=== PATIENT | male | born 2000 | race Caucasian/White ===

== ENCOUNTER 2023-06-14 21:42 | Emergency (ER) | payer OTHER, SELFPAY ==
[2023-06-14] VITALS (9 sets, daily range): BP systolic 121; BP diastolic 77; PULSE 49–90; RESP 8–19; TEMP 36.5; O2SAT 56; BMI 27.6
--- NOTE | 2023-06-14 22:55 | ECG_ITS ---
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
--- NOTE | 2023-06-14 22:55 | XR_ITS ---
The [address] [address] Patient Name: OSCAR MARTIN MRN: [id number] date: 2000 Sex: M Assigned Patient Location: ER Current Patient Location: ER Accession/Order Number: [id number] Exam Date: 06/14/2023 23:25 Report Date: 06/14/2023 23:41 At the request of: GALLO PENALOZA Procedure: XR chest 1V EXAM: XR chest 1V HISTORY: Chest pain, increased with deep breath, with palpitations for 2 days. COMPARISON: Chest x-ray, 10/07/2021. TECHNIQUE: AP upright portable chest radiograph. FINDINGS: The heart, mediastinum, lungs and pleural spaces appear within normal limits. The bony thorax is intact and unremarkable. XR/XR chest 1V IMPRESSION: Negative portable chest radiograph. Electronically authenticated by: YORDAN GARCIA Date: 06/14/2023 23:41
[2023-06-14 23:23] LABS: Basophils Percent Auto 0.4 % (0.2-2.0); Eosinophils Absolute Auto 0.3 10^3/uL (0.0-0.7); Eosinophils Percent Auto 3.8 % (0.9-7.0); Hematocrit 42.3 % (42.0-54.0); Hemoglobin 14.5 g/dL (14.0-18.0); Immature Granulocytes Abs Auto 0.03 10^3/uL (0.00-0.03); Immature Granulocytes Pct Auto 0.4 % (0.0-0.5); Lymphocytes Absolute Auto 2.3 10^3/uL (1.2-3.8); Lymphocytes Percent Auto 34.3 % (20.5-60.0); Mean Corpuscular HGB Conc 34.3 g/dL (29.9-35.2); Mean Corpuscular Volume 87.6 fL (80.0-94.0); Mean Platelet Volume 9.3 fL (9.5-13.5); Monocytes Absolute Auto 0.6 10^3/uL (0.3-0.8); Monocytes Percent Auto 8.9 % (1.7-12.0); Neutrophils Absolute Auto 3.6 10^3/uL (1.4-6.5); Neutrophils Percent Auto 52.2 % (43.0-75.0); Platelet Count 175 10^3/uL (150-450); Red Blood Count 4.83 10^6/uL (4.70-6.10); Red Cell Distribution Width 11.9 % (11.0-15.0); White Blood Count 6.8 10^3/uL (4.0-11.0)
[2023-06-14 23:44] LABS: Anion Gap 5.1; BUN Creatinine Ratio 13.9; Calcium 8.6 mg/dL (8.5-10.1); Chloride 105 mmol/L (98-107); Estimated GFR (African America >60 (>=60); Estimated GFR (Non-African Ame >60 (>=60); Glucose 107 mg/dL (74-106); Potassium 4.1 mmol/L (3.5-5.1); Sodium 135 mmol/L (136-145); Troponin I High Sensitivity 5.6 pg/mL (4.0-76.1)
[2023-06-15] VITALS: PULSE 54; RESP 17
[2023-06-15 00:10] VITALS: PULSE 48; RESP 20
--- NOTE | 2023-06-15 00:16 | PC.NURSE ---
patient c/o heart palpitations for approx 2 years off and on. states he has been seen in the ER last year for the same thing, states he was supposed to have a stress test and Holter monitor but never followed up. states the last couple of days he feels like his chest will beat harder at times and get a flutter feeling. .denies any dizziness, n/v or recent illness, or coughs. states he does experience slight pain when breathing in too deep.
[2023-06-15 00:20] VITALS: PULSE 55; RESP 24
[2023-06-15 00:30] VITALS: PULSE 64; RESP 23
--- NOTE | 2023-06-15 00:30 | ED_ITS ---
HPI - Chest Pain General Chief Complaint: Chest Pain Stated Complaint: PALPITATIONS Time Seen by Provider: 06/14/23 22:20 Source: patient Mode of arrival: walk-in History of Present Illness HPI narrative: patient states he has been experiencing palpitations on and off for the last year since he had COVID. States he was seen by his PCP who recommended he have a holter monitor. States he never had it done because he has to work. Experienced sensation of heart beating abnormal again tonight. Also became anxious. Describes cold chills also. Decided to come in [facility] for evaluation. currently asymptomatic Risk Factors Coronary artery disease risk factors: none Related Data Allergies Allergy/AdvReac Type Severity Reaction Status Date / Time No Known Drug Allergies Allergy Verified 06/14/23 22:10 Review of Systems ROS Status of ROS 10 or more systems reviewed and unremarkable except as noted in history and below PFSH FOR[facility] Social History Smoking status: Never smoker Exam Constitutional Vital Signs, click to edit/add: Last Vital Signs Temp 97.7 F 06/14/23 22:05 Pulse 48 L 06/15/23 00:10 Resp 20 06/15/23 00:10 BP 121/77 06/14/23 22:05 Pulse Ox 56 L 06/14/23 22:05 O2 Del Method Room Air 06/14/23 22:05 Common normals: no apparent distress, average body habitus, oriented x3, no limitations, healthy appearing, alert and well nourished Eye Common normals: EOMs intact bilaterally and conjunctivae normal Respiratory Common normals: normal respiratory effort, no retractions, no use of accessory muscles and clear to auscultation bilaterally GI Common normals: Normal to inspection, nondistended, normoactive bowel sounds present, soft to palpation and non-tender Extremity Common normals: normal to inspection, full ROM, normal capillary refill and no joint enlargement Neuro Common normals: oriented x3, CN's II-XII intact bilaterally, moves all extremities and no focal motor deficits Psych Appearance: grossly normal Course Vital Signs Vital signs: Vital Signs Temperature 97.7 F 06/14/23 22:05 Pulse Rate 53 L 06/14/23 22:05 Respiratory Rate 16 06/14/23 22:05 Blood Pressure 121/77 06/14/23 22:05 Pulse Oximetry 56 L 06/14/23 22:05 Oxygen Delivery Method Room Air 06/14/23 22:05 Temperature 97.7 F 06/14/23 22:05 Pulse Rate 48 L 06/15/23 00:10 Respiratory Rate 20 06/15/23 00:10 Blood Pressure 121/77 06/14/23 22:05 Pulse Oximetry 56 L 06/14/23 22:05 Oxygen Delivery Method Room Air 06/14/23 22:05 MDM - Chest Pain MDM Narrative Medical decision making narrative: presents with palpitations on and off for the past year. Not sure if is his anxiety or actually his heart. Cold chills also that concerned him he may have an infection. Exam and labs/diagnostics all normal. Patient discharged and we will help him to arrange for out patient holter and then have him follow up with his doctor Lab Data Labs: Lab Results 06/14/23 Range/Units 12:09 WBC 6.8 (4.0-11.0) 10^3/uL RBC 4.83 (4.70-6.10) 10^6/uL Hgb 14.5 (14.0-18.0) g/dL Hct 42.3 (42.0-54.0) % MCV 87.6 (80.0-94.0) fL MCH 30.0 (25.9-34.0) pg MCHC 34.3 (29.9-35.2) g/dL RDW 11.9 (11.0-15.0) % Plt Count 175 (150-450) 10^3/uL MPV 9.3 L (9.5-13.5) fL Neut % (Auto) 52.2 (43.0-75.0) % Lymph % (Auto) 34.3 (20.5-60.0) % [place] % (Auto) 8.9 (1.7-12.0) % Eos % (Auto) 3.8 (0.9-7.0) % Baso % (Auto) 0.4 (0.2-2.0) % Neut # (Auto) 3.6 (1.4-6.5) 10^3/uL Lymph # (Auto) 2.3 (1.2-3.8) 10^3/uL [place] # (Auto) 0.6 (0.3-0.8) 10^3/uL Eos # (Auto) 0.3 (0.0-0.7) 10^3/uL Baso # (Auto) 0.0 (0.0-0.1) 10^3/uL Abs Immat Gran (auto) 0.03 (0.00-0.03) 10^3/uL Imm/Tot Granulo (auto) 0.4 (0.0-0.5) % Sodium 135 L (136-145) mmol/L Potassium 4.1 (3.5-5.1) mmol/L Chloride 105 (98-107) mmol/L Carbon Dioxide 29.0 (21.0-32.0) mmol/L Anion Gap 5.1 BUN 14.0 (7.0-18.0) mg/dL Creatinine 1.01 (0.70-1.30) mg/dL Est GFR ( Amer) >60 (>=60) Est GFR (Non-Af Amer) >60 (>=60) BUN/Creatinine Ratio 13.9 Glucose 107 H (74-106) mg/dL Calcium 8.6 (8.5-10.1) mg/dL Troponin I High Sens 5.6 (4.0-76.1) pg/mL Discharge Plan Discharge Chief Complaint: Chest Pain Clinical Impression: Heart palpitations Patient Disposition: Home, Self-Care Instructions: Heart Palpitations (ED) Additional Instructions: holter monitor and then follow up with your doctor Stand Alone Forms: Portal Instructions Referrals: MARCELO ESTRADA [Primary Care Provider] - 1 week
[2023-06-15 00:40] VITALS: PULSE 63; RESP 18
[2023-06-15 00:47] VITALS: BP 118/75; PULSE 61; RESP 23; O2SAT 100
--- NOTE | 2023-06-15 00:53 | CA_ITS ---
[facility] Test Date: 2023-07-03 Pat Name: OSCAR MARTIN Department: Room: - Gender: Male Senior Patient Account Representative: : 2000 Requested By: [id number] Order Number: [id number] Reading MD: GWENDOLYN LERMA Interpretive Statements Predominant rhythm is sinus with average rate of 69 bpm Tachycardia - max rate of 155 bpm - longest episode of 13min 14sec with rate of 132 bpm Bradycardia: 41% total - min rate of 38 bpm, occurring at 0620 - longest episode of 1h 1min 19sec with rate of 51 bpm Ventricular ectopy - 3 PVC Patient triggered events - none Impression: Predominant rhythm is sinus with average rate of 69 bpm Fastest rate of 155 bpm and slowest rate of 38 bpm 3 PVC No blocks or pauses Electronically Signed On 07-09-2023 16:33:30 EDT by GWENDOLYN LERMA
== END 2023-06-15 01:00 | disposition home or self-care (01) ==
PROVIDERS: Emergency Provider Internal Medicine; PCP Family Medicine
DX: R00.2 Palpitations (principal); Z86.16 Personal history of COVID-19
CPT/HCPCS: 36415; 71045; 80048; 84484; 85025; 93005; 93242; 99285

== ENCOUNTER 2023-07-14 07:29 | Outpatient (OUT) | payer OTHER, SELFPAY ==
[2023-07-14 09:07] LABS: Thyroid Stimulating Hormone 0.771 uIU/mL (0.358-3.740)
== END 2023-07-14 07:30 | disposition home or self-care (01) ==
LOC: CARD 07:29
PROVIDERS: PCP Family Medicine; Visit Provider Family Medicine
DX: R00.2 Palpitations (principal)
CPT/HCPCS: 36415; 84443

== ENCOUNTER 2023-07-21 08:02 | Outpatient (OUT) | payer OTHER, SELFPAY ==
--- NOTE | 2023-07-21 08:46 | CA_ITS ---
Patient: OSCAR MARTIN Exam Date: 07/21/2023 : 2000 Gender:M Ordering : DR MARCELO ESTRADA Admission #: [id number] Family : Order #: [id number] CLICK HERE TO VIEW EXAM ECHOCARDIOGRAM REPORT PROCEDURE: CA ECHO DOPPLER COMPLETE INDICATIONS: Palpitations COMPARISON: None. DESCRIPTION: COMPLETE ECHOCARDIOGRAM Real-time transthoracic echocardiography with 2D, M-mode, spectral and color flow Doppler performed. QUALITY: Technical quality was good. LEFT VENTRICLE: Normal chamber size. Borderline left ventricular hypertrophy. LV EF: Global left ventricular systolic function is normal. Calculated left ventricular ejection fraction is 64%. DIASTOLIC: Normal diastolic function. ATRIAL SEPTUM: Inadequately seen. LEFT ATRIUM: Normal chamber size. RIGHT ATRIUM: Normal chamber size. RIGHT VENTRICLE: Normal chamber size. Normal right ventricular systolic function. TRICUSPID VALVE: Normal mobility and thickness. No stenosis with trivial regurgitation. No evidence of pulmonary hypertension. RVSP 29mmHg MITRAL VALVE: Normal mobility and thickness. No evidence of mitral valve stenosis. There is no mitral annular calcification. Trivial mitral regurgitation. AORTIC VALVE: Normal trileaflet appearance. No visible sclerosis. Normal leaflet mobility. No evidence of aortic valve stenosis. No aortic regurgitation. AORTIC ROOT: Normal diameter and appearance. PULMONIC VALVE: Normal thickness and mobility. No stenosis. Trivial regurgitation. PERICARDIUM: No evidence of pericardial effusion. IVC: Collapses with inspirations. Normal size. CONCLUSION: 1. Global left ventricular systolic function is normal; visually estimated ejection fraction is 60 to 65% 2. Borderline left ventricular hypertrophy 3. Normal diastolic function 4. Right ventricle is normal in size and systolic function 5. No significant valvular abnormalities Adult Echocardiography Procedure Report Left Ventricle LVEDD (3.7 - 5.6 cm): 5.08 cm LVESD (2.2 - 4.0 cm): 3.45 cm LVIVS thickness (0.6 - 1.2 cm): 1.15 cm LVPW thickness (0.5 - 1.0 cm): 1.12 cm e': 0.16 m/s E - e': 4.14 LVOT Max Gradient: 2.92 mm[Hg] LVOT Area (cm2): 0.85 m/s Peak Velocity (LVOT): 0.85 m/s Mean Velocity (LVOT): 0.54 m/s LVOT Diameter 2.45 cm Left Ventricular Ejection Fraction: 64.38 % Left Atrium LA Volume Index (2D A2C): 32.42 ml/m2 Left Atrium Systolic Dimension: 3.45 cm Mitral Valve MV E to A Ratio: 1.50 Mitral Valve A-Wave Peak Velocity: 0.45 m/s Mitral Valve E-Wave Peak Velocity: 0.68 m/s Right Ventricle RV Internal Diastolic Dimension: 3.77 cm Aorta AO Root Diam: 3.06 cm Ascending Ao Diam: 2.94 cm Aortic Valve AoV Area (Peak Benjy): 3.58 cm2, 3.58 cm2 AoV Area (VTI): 3.21 cm2, 3.21 cm2 Peak Velocity(Antegrade Flow): 1.13 m/s Peak Gradient(Antegrade Flow): 5.09 mm[Hg] Mean Velocity(Antegrade Flow): 0.78 m/s Mean Gradient(Antegrade Flow): 2.70 mm[Hg] Velocity Time Integral: 24.59 cm Tricuspid Valve Peak Velocity (Regurgitant Flow): 1.93 m/s, 2.23 m/s, 2.57 m/s Pulmonic Valve Mean Gradient: 1.44 mm[Hg], 2.20 mm[Hg] Mean Velocity: 0.56 m/s, 0.69 m/s Peak Velocity: 0.89 m/s Peak Gradient: 2.60 mm[Hg], 3.87 mm[Hg] Right Atrium Right Atrium Systolic Pressure: 63.61 ml, 63.61 ml Dictated by: Cory Ace M.D. on 07/21/2023 at 10:33 Approved by: Cory Ace M.D. on 07/21/2023 at 10:36
== END 2023-07-21 08:03 | disposition home or self-care (01) ==
LOC: CARD 08:03
PROVIDERS: PCP Family Medicine; Visit Provider Family Medicine
DX: R00.2 Palpitations (principal)
CPT/HCPCS: 93306